=== PATIENT | female | born 1990 | race Caucasian/White ===

== ENCOUNTER 2019-01-31 02:38 | Inpatient (IN) | payer OTHER ==
[~2019-01-31] VITALS: Ht 167.6 cm; Wt 74.0 kg
[2019-01-31 04:06] LABS: BASOPHILS ABSOLUTE AUTO 0.03 K/mm3 (0.00-0.23); BASOPHILS PERCENT AUTO 0 % (0-2); EOSINOPHILS ABSOLUTE AUTO 0.04 K/mm3 (0.00-0.68); EOSINOPHILS PERCENT AUTO 1 % (0-6); Hematocrit 35.5 % (33.0-51.0); Hemoglobin 11.6 g/dL (11.5-16.0); IMMATURE GRAN ABSOLUTE AUTO 0.02 K/mm3 (0.00-0.10); IMMATURE GRAN PERCENT AUTO 0 % (0-1); LYMPHOCYTES ABSOLUTE AUTO 2.29 K/mm3 (0.84-5.20); LYMPHOCYTES PERCENT AUTO 28 % (21-46); MONOCYTES ABSOLUTE AUTO 0.91 K/mm3 (0.16-1.47); MONOCYTES PERCENT AUTO 11 % (4-13); Mean Corpuscular HGB 28.6 pg (26.0-34.0); Mean Corpuscular HGB Conc 32.7 g/dL (31.5-36.5); Mean Corpuscular Volume 88 fL (80-100); Mean Platelet Volume 10.2 fL (9.1-12.4); NEUTROPHILS ABSOLUTE AUTO 4.89 K/mm3 (1.96-9.15); NEUTROPHILS PERCENT AUTO 60 % (41-73); Platelet Count 204 K/mm3 (150-400); RDW Coefficient Variation 13.2 % (11.7-14.2); RDW Standard Deviation 42.9 fL (35.1-46.3); Red Blood Cell Count 4.05 M/mm3 (3.80-5.20); White Blood Cell Count 8.18 K/mm3 (4.00-11.30)
[2019-01-31 04:10] LABS: U Amphetamine Screen Not Detected; U Barbituate Screen Not Detected; U Benzodiazapine Screen Not Detected; U Buprenorphine Screen Not Detected; U Cannabinoids Screen Not Detected; U Cocaine Screen Not Detected; U Methadone Screen Not Detected; U Methamphetamine Screen Not Detected; U Opiates Screen Not Detected; U Oxycodone Screen Not Detected; U Phencyclidine Screen Not Detected; U Propoxyphene Screen Not Detected
--- NOTE | 2019-01-31 10:49 | NUR ---
UP TO SHOWER
--- NOTE | 2019-01-31 13:00 | NUR ---
RN TO ROOM TO DO VS, MOM AND BABY BOTH LAYING DOWN IN MOMS BED. RN EDUCATED PATIENT ON SAFE SLEEPING AND BACK TO CRIB SAFETY. PATIENT VERBALIZED UNDERSTANDING AND PLACED IN CRIB TO SLEEP.
[2019-02-01 05:43] LABS: Hematocrit 31.1 % (33.0-51.0); Hemoglobin 10.1 g/dL (11.5-16.0); Mean Corpuscular HGB 29.4 pg (26.0-34.0); Mean Corpuscular HGB Conc 32.5 g/dL (31.5-36.5); Mean Corpuscular Volume 90 fL (80-100); Mean Platelet Volume 10.2 fL (9.1-12.4); Platelet Count 165 K/mm3 (150-400); RDW Coefficient Variation 13.2 % (11.7-14.2); RDW Standard Deviation 43.6 fL (35.1-46.3); Red Blood Cell Count 3.44 M/mm3 (3.80-5.20); White Blood Cell Count 7.21 K/mm3 (4.00-11.30)
[2019-02-01] MEDS ORDERED: Vitafol-Ob+Dha1 EACH PO (17:51)
--- NOTE | 2019-02-01 17:59 | NUR ---
PT TAKING TUB BATH RN FOUND PT IN TUB, RN INSTRUCTED PT THAT IT IS HOSPITAL POLICY TO INSTRUCT PT'S NOT TAKE A TUB BATH FOR 4-6 WEEKS . RN SPOKE WITH Lauren GUTIERREZ CNM SHE WAS ON THE UNIT. ABAD BURNETT STATED SHE IS OKAY WITH PT TAKING A TUB BATH LONG IT IS IN A CLEAN TUB AND IT IS NOT A DIRTY PUBLIC POOL OR OTHER PUBLIC POOL OF WATER.
== END 2019-02-01 18:40 | disposition home or self-care (01) | DRG 807 ==
LOC: OBS 02:38 → BC 02:38 → OBS 03:41 → BC 03:43
PROVIDERS: ADMIT Advanced Practice Midwife
PROC: 10E0XZZ Delivery of Products of Conception, External Approach (ICD-10-PCS; principal; 2019-01-31)
PROC: 10907ZC Drainage of Amniotic Fluid, Therapeutic from Products of Conception, Via Natural or Artificial Opening (ICD-10-PCS; 2019-01-31)
DX: O80 Encounter for full-term uncomplicated delivery (principal); Z37.0 Single live birth; Z3A.39 39 weeks gestation of pregnancy
CPT/HCPCS: 36415; 85025; 85027; 86900; 86901; 87210; A9270; J1885; J7120